=== PATIENT | male | born 1985 | race African-American/Black ===

== ENCOUNTER 2016-10-06 02:31 | Emergency (ER) | payer OTHER ==
--- NOTE | 2016-10-06 05:44 | ER Document Report ---
ED GI/ - General Chief Complaint: Vomiting Stated Complaint: VOMITING/ABDOMINAL PAIN Time seen by provider: 05:41 Mode of Arrival: Ambulatory Information source: Patient Notes: 31-year-old male presented to ED for nausea vomiting since 11:00 tonight. He states he has not had any vomiting since he came back to the room. He states he has a bad history of acid reflux. He states he still has some tenderness to his left upper quadrant but the rest of his abdomen feels much better. He refused to have any labs drawn or to give a urine. TRAVEL OUTSIDE OF THE [place] IN LAST 30 DAYS: No - HPI Patient complains to provider of: Abdominal pain, Vomiting Onset: This evening Timing/Duration: Better Quality of pain: Other - Sore to the upper left abdomen Severity at maximum: Severe Severity in ED: Almost gone Pain Level: 1 Location: [facility] Associated symptoms: Nausea, Vomiting Exacerbated by: Other - Vomiting Relieved by: Denies Similar symptoms previously: Yes Recently seen / treated by doctor: No - Related Data Allergies/Adverse Reactions: No Known Allergies Allergy (Unverified 01/02/12 17:04) Past Medical History - General Information source: Patient - Social History Smoking Status: Never Smoker Cigarette use (# per day): No Chew tobacco use (# tins/day): No Smoking Education Provided: No Frequency of alcohol use: Occasional Drug Abuse: None Occupation: outpatient physical therapist assistant Lives with: Family - Brother Family History: Malignancy. denies: Arthritis, CAD, COPD, CVA, DM, Hyperlipidemia, Hypertension, Thyroid Disfunction - Past Medical History Cardiac Medical History: Reports: None Pulmonary Medical History: Reports: None EENT Medical History: Reports: None Neurological Medical History: Reports: None Endocrine Medical History: Reports: None Renal/ Medical History: Reports: None Malignancy Medical History: Reports None GI Medical History: Reports: Hx Gastroesophageal Reflux Disease Musculoskeltal Medical History: Reports Hx Musculoskeletal Trauma - C4-C5 injury unsure if it was a fracture states he did not need surgery for Skin Medical History: Reports None Psychiatric Medical History: Reports: None Traumatic Medical History: Reports: None Infectious Medical History: Reports: None Past Surgical History: Reports: Hx Oral Surgery - [place] teeth - Immunizations Immunizations up to date: Yes Hx Diphtheria, Pertussis, Tetanus Vaccination: Yes Review of Systems - Review of Systems Constitutional: No symptoms reported EENT: No symptoms reported Cardiovascular: No symptoms reported Respiratory: No symptoms reported Gastrointestinal: Abdominal pain, Nausea, Vomiting Genitourinary: No symptoms reported Male Genitourinary: No symptoms reported Musculoskeletal: No symptoms reported Skin: No symptoms reported Hematologic/Lymphatic: No symptoms reported Neurological/Psychological: No symptoms reported -: Yes All other systems reviewed and negative Physical Exam - Vital signs Vitals: Temp Pulse Resp BP Pulse Ox 97.9 F 87 18 120/79 100 10/06/16 02:50 10/06/16 02:50 10/06/16 02:50 10/06/16 02:50 10/06/16 02:50 Interpretation: Normal - General General appearance: Appears well, Alert - HEENT Head: Normocephalic, Atraumatic Eyes: Normal Pupils: PERRL - Respiratory Respiratory status: No respiratory distress Chest status: Nontender Breath sounds: Normal Chest palpation: Normal - Cardiovascular Rhythm: Regular Heart sounds: Normal auscultation Murmur: No - Abdominal Inspection: Normal Distension: No distension Bowel sounds: Normal Tenderness: Tender - Mild left upper quadrant tenderness abdomen soft no guarding. No: McBurney's point, Escobar's sign, Guarding, Rebound Organomegaly: No organomegaly - Back Back: Normal, Nontender - Extremities General upper extremity: Normal inspection, Nontender, Normal color, Normal ROM , Normal temperature General lower extremity: Normal inspection, Nontender, Normal color, Normal ROM , Normal temperature, Normal weight bearing. No: Kip's sign - Neurological Neuro grossly intact: Yes Cognition: Normal Orientation: AAOx4 [place] Coma Scale Eye Opening: Spontaneous [place] Coma Scale Verbal: Oriented [place] Coma Scale Motor: Obeys Commands Rosalva Coma Scale Total: 15 Speech: Normal Motor strength normal: LUE, RUE, LLE, RLE Sensory: Normal - Psychological Associated symptoms: Normal affect, Normal mood - Skin Skin Temperature: Warm Skin Moisture: Dry Skin Color: Normal Course - Re-evaluation Re-evalutation: 10/06/16 06:10 Patient refused any labs or urine. A she states she's feeling much better and does not want to have labs drawn does not want to stay must go home. States he has a bad history of reflux and like something for his reflux. He states he has not vomited since he came back to the room. His abdomen is soft no guarding states he has mild tenderness to the left upper quadrant when palpated. Discussed need for return to the emergency room immediately for any nausea vomiting or increasing pain. Patient verbalized understanding. We'll discharge home with prescription for Pepcid and Zofran. Discussed patient with Dr. Holly he said just go ahead and discharge him. - Vital Signs Vital signs: Temp Pulse Resp BP Pulse Ox 97.9 F 87 18 120/79 100 10/06/16 02:50 10/06/16 02:50 10/06/16 02:50 10/06/16 02:50 10/06/16 02:50 Discharge - Discharge Clinical Impression: Abdominal pain Qualifiers: Abdominal location: left upper quadrant Qualified Code(s): R10.12 - Left upper quadrant pain Nausea and vomiting Qualifiers: Vomiting type: unspecified Vomiting Intractability: non-intractable Qualified Code(s): R11.2 - Nausea with vomiting, unspecified Condition: Stable Disposition: HOME, SELF-CARE Instructions: Family Physicians / Practices Additional Instructions: ABDOMINAL PAIN: There are many causes of abdominal pain. Pain can mean a serious problem requiring surgery (such as appendicitis). It can also be an innocent problem that goes away on its own (such as a viral infection). Often, time must pass to determine the cause of pain. The physician does not feel that hospitalization is necessary, at present. Things may change within the next 24 hours. Call the doctor or come back for re- examination if any problems occur, such as: (1) Pain that becomes more severe, steady, or becomes concentrated in one specific area. Also, pain that is more severe with movement or coughing. (2) Vomiting that persists or becomes more frequent. (3) Blood in the vomitus, urine, or bowel movements. Blood in the stool may have a tarry or black appearance. (4) Shaking chills or fever greater than 100 degrees F. (5) The abdomen becomes more distended or swollen. (6) Bowel movements cease. (7) Failure to improve as expected. Acid-Suppressing Medication You have a prescription for medicine which reduces the stomach's secretion of acid. Examples include Zantac, Tagament, and Pepcid. These drugs are often used to allow healing of ulcers or esophagitis. They may be needed to prevent recurrence of ulcers in some patients, or to prevent damage from acid reflux in the esophagus. Take all medication as prescribed, even after the pain is gone. Regular antacids may be added as needed if you have symptoms while taking this medicine. These medications sometimes are prescribed for allergic reactions because they have anti-histaminic effects and relieve the rash and itching of the reaction. There are usually no side effects from this medication. But, in rare cases and particularly in the elderly, serious problems can occur. Contact your doctor if there is fever, rash, hallucinations, confusion, or unusual bruising. Contact your doctor at once if you develop lightheadedness, black or bloody stool, or bloody vomitus. NORMAL EXAM AND WORKUP: At this time, your examination and workup show no significant abnormality. No significant abnormal physical findings are noted. You have refused all labs Although your examination showed no significant abnormal finding, there are no examinations and no studies that are 100% accurate. There is always the possibility that some abnormality could exist and not be detected with physical examination or within the limits and capabilities of laboratory and other studies. You should return or follow up as you were instructed on your visit today for further evaluation if your symptoms do not resolve. You have refused all labs and would like to go home at this time as you stated you feel much better. If you start to have more nausea vomiting or abdominal pain please return to ED immediately. FOLLOW-UP CARE: If you have been referred to a physician for follow-up care, call the physician s office for an appointment as you were instructed or within the next two days. If you experience worsening or a significant change in your symptoms, notify the physician immediately or return to the Emergency Department at any time for re-evaluation. Prescriptions: Famotidine [Pepcid 20 mg Tablet] 20 mg PO DAILY #12 tablet Ondansetron [Zofran Odt 4 mg Tablet] 1 tab PO Q6H #15 tab.eh
[2016-10-06] MEDS ORDERED: FAMOTIDINE 20 MG TABLET PO ONE (05:47)
[2016-10-06 07:48] VITALS: BP 110/95
== END 2016-10-06 07:40 | disposition home or self-care (01) ==
LOC: ER 02:31
DX: K21.9 Gastro-esophageal reflux disease without esophagitis (principal); R11.2 Nausea with vomiting, unspecified; R10.12 Left upper quadrant pain; R10.812 Left upper quadrant abdominal tenderness; Z87.19 Personal history of other diseases of the digestive system
CPT/HCPCS: 99283

== ENCOUNTER 2019-08-01 18:51 | Emergency (ER) | payer OTHER ==
[2019-08-01] MEDS ORDERED: ONDANSETRON HCL INJ/PF 4 MG/2 ML SDV IV ONE (19:25)
[2019-08-01] MEDS ORDERED: NORMAL SALINE 1000 ML 1,000 ML IV ONE (19:25)
[2019-08-01] MEDS ORDERED: MORPHINE SULFATE 10 MG/ML INJ IV ONE (19:25)
[2019-08-01] MEDS ORDERED: ONDANSETRON HCL INJ/PF 4 MG/2 ML SDV IM ONE (19:27)
--- NOTE | 2019-08-01 19:28 | ER Document Report ---
ED Medical Screen (RME) - General Chief Complaint: Breathing Difficulty Stated Complaint: DIFFICULTY BREATHING,ABDOMINAL PAIN Time Seen by Provider: 08/01/19 19:22 TRAVEL OUTSIDE OF THE [place] IN LAST 30 DAYS: No - HPI Notes: 08/01/19 19:28 34 year old male to the Ed with C/O stomach pain and difficulty breathing. States that he started to have abdominal pain this afternoon after "eating too much" and drinking some ETOH. States that he began to vomit. States his abdomen hurts so much that now he feels short of breath. denies diarrhea, fevers, chest pain, flank pain. I performed a brief medical screening exam on the patient and determined that the patient will need further management by mainside provider. I have placed initial orders to help expedite the patient's care today. - Related Data Allergies/Adverse Reactions: No Known Allergies Allergy (Verified 08/01/19 19:26) Past Medical History Renal/ Medical History: Denies: Hx Peritoneal Dialysis GI Medical History: Reports: Hx Gastroesophageal Reflux Disease Musculoskeltal Medical History: Reports Hx Musculoskeletal Trauma - C4-C5 injury unsure if it was a fracture states he did not need surgery for Past Surgical History: Reports: Hx Oral Surgery - [place] teeth - Immunizations Immunizations up to date: Yes Hx Diphtheria, Pertussis, Tetanus Vaccination: Yes Physical Exam - Vital signs Vitals: Temp Pulse Resp BP Pulse Ox 98 F 99 28 H 135/78 H 99 08/01/19 18:58 08/01/19 18:58 08/01/19 18:58 08/01/19 18:58 08/01/19 18:58 Course - Vital Signs Vital signs: Temp Pulse Resp BP Pulse Ox 98 F 99 28 H 135/78 H 99 08/01/19 18:58 08/01/19 18:58 08/01/19 18:58 08/01/19 18:58 08/01/19 18:58
[2019-08-01 20:07] LABS: ABSOLUTE BASOPHILS # (AUTO) 0.1 10^3/uL (0.0-0.2); ABSOLUTE LYMPHOCYTES (AUTO) 1.3 10^3/uL (0.5-4.7); ABSOLUTE MONOCYTES (AUTO) 0.4 10^3/uL (0.1-1.4); ABSOLUTE NEUT (AUTO) 10.2 10^3/uL (1.7-8.2); BASOPHILS % (AUTO) 0.7 % (0-2); EOSINOPHILS % (AUTO) 0.4 % (0-6); HEMATOCRIT 50.8 % (37.9-51.0); LYMPHOCYTES % (AUTO) 10.7 % (13-45); MEAN CORPUSCULAR HEMOGLOBIN 27.9 pg (27.0-33.4); MEAN CORPUSCULAR HGB CONC 33.4 g/dL (32.0-36.0); MEAN CORPUSCULAR VOLUME 84 fl (80-97); MONOCYTES % (AUTO) 3.5 % (3-13); PLATELET COUNT 241 10^3/uL (150-450); RED BLOOD COUNT 6.08 10^6/uL (4.35-5.55); RED CELL DISTRIBUTION WIDTH 13.1 % (11.5-14.0); SEGMENTED NEUTROPHILS % (AUTO) 84.7 % (42-78); TOTAL CELLS COUNTED % (AUTO) 100 %
[2019-08-01 20:22] LABS: ALBUMIN 4.9 g/dL (3.5-5.0); ALKALINE PHOSPHATASE 63 U/L (38-126); ANION GAP 15 (5-19); ASPARTATE AMINO TRANSFERASE 28 U/L (17-59); BILIRUBIN,DIRECT 0.1 mg/dL (0.0-0.4); BILIRUBIN,TOTAL 0.4 mg/dL (0.2-1.3); BLOOD UREA NITROGEN 12 mg/dL (7-20); CARBON DIOXIDE 23 mmol/L (22-30); CHLORIDE 103 mmol/L (98-107); GLUCOSE 101 mg/dL (75-110); POTASSIUM 3.9 mmol/L (3.6-5.0); TOTAL PROTEIN 8.3 g/dL (6.3-8.2)
--- NOTE | 2019-08-01 20:42 | RADIOLOGY REPORT (SQ) ---
EXAM DESCRIPTION: X-RAY CHEST- three VIEWS CLINICAL HISTORY: Shortness of breath and abdominal pain COMPARISON: None available TECHNIQUE: 3 views of the chest FINDINGS: There are no discrete air space infiltrates, pneumothoraces or pleural effusions. The pulmonary vascularity is normal. The cardiomediastinal silhouette is normal in size. No suspicious lytic or blastic osseous lesions are identified. IMPRESSION: There are no acute lung parenchymal findings.
--- NOTE | 2019-08-01 20:55 | EKG REPORT ---
SEVERITY:- NORMAL ECG - SINUS RHYTHM : Confirmed by: Marino Gonzales MD 01-Aug-2019 20:55:12
[2019-08-01 21:15] LABS: APPEARANCE,URINE CLOUDY; BILIRUBIN,URINE NEGATIVE (NEGATIVE); COLOR,URINE YELLOW; GLUCOSE, URINE NEGATIVE (NEGATIVE); KETONES,URINE TRACE mg/dL (NEGATIVE); LEUKOCYTE ESTERASE,URINE NEGATIVE (NEGATIVE); NITRITE,URINE NEGATIVE (NEGATIVE); PROTEIN,URINE 30 mg/dL (NEGATIVE); URINE SPECIFIC GRAVITY 1.017; UROBILINOGEN,URINE NEGATIVE mg/dL (<2.0)
[2019-08-01] MEDS ORDERED: MAG HYDROX/AL HYDROX/SIMETH SUSP 30 ML UDCUP PO ONE (23:51)
[2019-08-01] MEDS ORDERED: LIDOCAINE 2% VISCOUS SOLN 20 ML UDCUP PO ONE (23:51)
--- NOTE | 2019-08-01 23:56 | ER Document Report ---
ED General - General Chief Complaint: Abdominal Pain Stated Complaint: DIFFICULTY BREATHING,ABDOMINAL PAIN Time Seen by Provider: 08/01/19 19:22 TRAVEL OUTSIDE OF THE [place] IN LAST 30 DAYS: No - Related Data Allergies/Adverse Reactions: No Known Allergies Allergy (Verified 08/01/19 19:26) Past Medical History - Social History Smoking Status: Never Smoker Frequency of alcohol use: Occasional Drug Abuse: None Family History: Malignancy. denies: Arthritis, CAD, COPD, CVA, DM, Hyperlipidemia, Hypertension, Thyroid Disfunction Patient has suicidal ideation: No Patient has homicidal ideation: No Renal/ Medical History: Denies: Hx Peritoneal Dialysis GI Medical History: Reports: Hx Gastroesophageal Reflux Disease Musculoskeletal Medical History: Reports Hx Musculoskeletal Trauma - C4-C5 injury unsure if it was a fracture states he did not need surgery for Past Surgical History: Reports: Hx Oral Surgery - [place] teeth - Immunizations Immunizations up to date: Yes Hx Diphtheria, Pertussis, Tetanus Vaccination: Yes Physical Exam - Vital signs Vitals: Temp Pulse Resp BP Pulse Ox 98 F 99 28 H 135/78 H 99 08/01/19 18:58 08/01/19 18:58 08/01/19 18:58 08/01/19 18:58 08/01/19 18:58 - Notes Notes: Patient presents emergency department complaining of epigastric pain is been going on for several hours. Patient is a little bit better right now. Nonradiating. He does report similar pain in the past related to his reflux. He is also complaining of burning sensation in the substernal area seems to be worse when he lies flat and better when he sits up. Several episodes of nausea vomiting earlier today but is not thrown up in several hours. For that he was drinking large amount of alcohol today and normally does not drink much. He is really not had any chest pain at all. He said the burning sensation in the substernal area but no chest pain to suggest a cardiac etiology since he has no real shortness of breath he is. He says his mouth is dry and when he lays flat he gets a burning sensation and feels like he has to gasp to take a breath. Denies any fevers or cough. Has not had any blood in his stools and no history of peptic ulcer disease or pancreatitis Past medical history is unremarkable no diabetes hypertension heart disease or elevated cholesterol Social history does not smoke. Says he drinks rarely but today there was celebrating Family history is noncontributory Review of systems pertinent positives and negatives in HPI otherwise all the systems were reviewed and acutely negative PHYSICIAN EXAM -vital signs are noted triage note and note from triage reviewed GENERAL: Well-appearing, well-nourished and in _no acute distress HEAD: Atraumatic, normocephalic. EYES: Pupils equal round and reactive to light, extraocular movements intact, sclera anicteric, conjunctiva are normal. ENT: nares patent, oropharynx clear without exudates. Dry mucous membranes. NECK: supple without lymphadenopathy LUNGS: Breath sounds clear to auscultation bilaterally and equal. No wheezes rales or rhonchi. HEART: Regular rate and rhythm without murmurs ABDOMEN: Soft, nontender, normoactive bowel sounds. EXTREMITIES: No deformity, no edema. NEUROLOGICAL: No focal neurological deficits. Moves all extremities spontaneously and on command. PSYCH: Normal mood, normal affect. SKIN: Warm, Dry, normal turgor, no rashes or lesions noted. BACK-nontender in the midline Differential diagnosis was dehydration abnormal electrolytes pancreatitis reflux Course - Vital Signs Vital signs: Temp Pulse Resp BP Pulse Ox 98.3 F 82 18 128/76 H 99 08/01/19 23:25 08/01/19 23:25 08/01/19 23:25 08/01/19 23:25 08/01/19 23:25 - Laboratory Result Diagrams: 08/01/19 19:50 08/01/19 19:50 Laboratory results interpreted by me: 08/01/19 08/01/19 08/01/19 19:50 19:50 20:38 WBC 12.0 H RBC 6.08 H Lymph % (Auto) 10.7 L Absolute Neuts (auto) 10.2 H Seg Neutrophils % 84.7 H Total Protein 8.3 H Urine Protein 30 H Urine Ketones TRACE H Discharge - Discharge Clinical Impression: Abdominal pain Qualifiers: Abdominal location: epigastric Qualified Code(s): R10.13 - Epigastric pain Nausea and vomiting Qualifiers: Vomiting Intractability: unspecified Esophageal reflux Qualifiers: Esophagitis presence: esophagitis presence not specified Qualified Code(s): K21.9 - Gastro-esophageal reflux disease without esophagitis Disposition: HOME, SELF-CARE Instructions: Abdominal Pain ([facility]), Antinausea Medication ([facility]), Low-Fat Diet ([facility]) Additional Instructions: Please review the discharge instructions, they will tell you about your dis ease/injury and what you need to return to the ED for Return to the ED if you feel worse or can follow-up with your family doctor Stop drinking alcohol Stay on a bland diet avoiding fatty greasy foods for the next 3 to 5 days Follow-up with your family doctor in 3 to 5 days if not better Taking either Nexium or Prilosec-both are [id number]-daily for 10 days then as needed for reflux symptoms Forms: Return to Work
[2019-08-02] MEDS ORDERED: ONDANSETRON ODT 4 MG TAB (6 TAB/ER DISP) PO PRN (00:28)
[2019-08-02] MEDS ORDERED: PANTOPRAZOLE SODIUM 20 MG TABLET.DR PO ONE (00:28)
[2019-08-02 00:57] VITALS: BP 132/72
== END 2019-08-02 00:57 | disposition home or self-care (01) ==
LOC: ER 18:51
DX: K21.9 Gastro-esophageal reflux disease without esophagitis (principal); R10.13 Epigastric pain; R11.2 Nausea with vomiting, unspecified; R06.02 Shortness of breath
CPT/HCPCS: 93005; 36415; 83690; 85025; 80053; 81001; 84484; 71046; 93010; J3490 ×2; J2405; 96374; 99284

== ENCOUNTER 2019-12-22 20:40 | Emergency (ER) | payer OTHER ==
[2019-12-22] MEDS ORDERED: NORMAL SALINE 1000 ML 1,000 ML IV ONE ×2 (21:02→21:59)
[2019-12-22] MEDS ORDERED: ONDANSETRON HCL INJ/PF 4 MG/2 ML SDV IV ONE ×2 (21:03→21:58)
[2019-12-22 21:29] LABS: ABSOLUTE BASOPHILS # (AUTO) 0.1 10^3/uL (0.0-0.2); ABSOLUTE EOSINOPHILS # (AUTO) 0.2 10^3/uL (0.0-0.6); ABSOLUTE LYMPHOCYTES (AUTO) 2.6 10^3/uL (0.5-4.7); ABSOLUTE MONOCYTES (AUTO) 0.5 10^3/uL (0.1-1.4); ABSOLUTE NEUT (AUTO) 2.5 10^3/uL (1.7-8.2); BASOPHILS % (AUTO) 1.4 % (0-2); EOSINOPHILS % (AUTO) 3.8 % (0-6); HEMATOCRIT 47.9 % (37.9-51.0); HEMOGLOBIN 16.6 g/dL (13.5-17.0); LYMPHOCYTES % (AUTO) 43.5 % (13-45); MEAN CORPUSCULAR HEMOGLOBIN 28.6 pg (27.0-33.4); MEAN CORPUSCULAR HGB CONC 34.6 g/dL (32.0-36.0); MEAN CORPUSCULAR VOLUME 83 fl (80-97); MONOCYTES % (AUTO) 8.4 % (3-13); PLATELET COUNT 253 10^3/uL (150-450); RED BLOOD COUNT 5.79 10^6/uL (4.35-5.55); SEGMENTED NEUTROPHILS % (AUTO) 42.9 % (42-78); TOTAL CELLS COUNTED % (AUTO) 100 %; WHITE BLOOD COUNT 5.9 10^3/uL (4.0-10.5)
[2019-12-22 21:53] LABS: ALBUMIN 4.7 g/dL (3.5-5.0); ALCOHOL 96 mg/dL (NONE DETECTED); ALKALINE PHOSPHATASE 61 U/L (38-126); ANION GAP 15 (5-19); ASPARTATE AMINO TRANSFERASE 31 U/L (17-59); BILIRUBIN,TOTAL 0.3 mg/dL (0.2-1.3); BLOOD UREA NITROGEN 13 mg/dL (7-20); CALCIUM 9.8 mg/dL (8.4-10.2); CARBON DIOXIDE 21 mmol/L (22-30); CHLORIDE 103 mmol/L (98-107); GLUCOSE 107 mg/dL (75-110); TOTAL PROTEIN 7.7 g/dL (6.3-8.2)
--- NOTE | 2019-12-22 21:58 | ER Document Report ---
ED General - General Chief Complaint: ETOH Abuse Stated Complaint: VOMITING Time Seen by Provider: 12/22/19 21:49 Mode of Arrival: Ambulatory Information source: Patient Notes: triage notes patient ambulatory to pit 1, patient states he drove himself to the er for vomiting after taking 3 shots of brown liquor. patient states hes a light drinking. patient states "i need an iv or something. whenever im like this i always have to come to the hospital" patient states he only drinks once every 6 months. patient rambling in triage. patient breaths e/u, nad my notes 34-year-old black male arrives with acute vomiting after drinking 3 shots of whiskey rum; patient reports this occurs every 6 months when he is celebrating and he always begins to have epigastric pain with vomiting. Patient reports he has some relief from nausea after receiving the 4 mg of Zofran medicine by nursing staff. Patient is placed in the hallway next to bed 3. He is lying comfortable there while I do a exam on him. He has a drape around him. Patient reports he has vomited twice tonight and denies any history of PUD or pancreatitis. He denies any sore throat fever chills nuchal rigidity cephalgia back pain neck pain extremity lesions IV drug abuse; he does admit to the abdominal pain. Patient reports he vomited his dario chips that he was eating for dinner TRAVEL OUTSIDE OF THE [place] IN LAST 30 DAYS: No - HPI Onset: Just prior to arrival Onset/Duration: Sudden, Persistent, Worse Quality of pain: Achy Severity: Mild Pain Level: 1 Associated symptoms: Nausea, Vomiting, Weakness Exacerbated by: Movement, Food - Related Data Allergies/Adverse Reactions: No Known Allergies Allergy (Verified 08/01/19 19:26) Past Medical History - Social History Smoking Status: Never Smoker Chew tobacco use (# tins/day): No Frequency of alcohol use: Occasional Drug Abuse: None Family History: Malignancy. denies: Arthritis, CAD, COPD, CVA, DM, Hyperlipidemia, Hypertension, Thyroid Disfunction Patient has homicidal ideation: No Renal/ Medical History: Denies: Hx Peritoneal Dialysis GI Medical History: Reports: Hx Gastroesophageal Reflux Disease Musculoskeletal Medical History: Reports Hx Musculoskeletal Trauma - C4-C5 injury unsure if it was a fracture states he did not need surgery for Past Surgical History: Reports: Hx Oral Surgery - [place] teeth - Immunizations Immunizations up to date: Yes Hx Diphtheria, Pertussis, Tetanus Vaccination: Yes Review of Systems - Review of Systems Constitutional: See HPI, Weakness EENT: No symptoms reported Cardiovascular: No symptoms reported Respiratory: No symptoms reported Gastrointestinal: See HPI, Abdominal pain, Nausea, Vomiting Genitourinary: No symptoms reported Male Genitourinary: No symptoms reported Musculoskeletal: No symptoms reported Skin: No symptoms reported Hematologic/Lymphatic: No symptoms reported Neurological/Psychological: No symptoms reported Physical Exam - Vital signs Vitals: Temp Pulse Resp BP Pulse Ox 97.6 F 79 20 123/70 98 12/22/19 20:48 12/22/19 20:48 12/22/19 20:48 12/22/19 20:48 12/22/19 20:48 Interpretation: Normal - General General appearance: Alert - HEENT Head: Normocephalic, Atraumatic Eyes: Normal Pupils: PERRL Pharynx: Normal Neck: Normal - Respiratory Respiratory status: No respiratory distress Chest status: Nontender Breath sounds: Normal Chest palpation: Normal - Cardiovascular Rhythm: Regular Heart sounds: Normal auscultation Murmur: No - Abdominal Inspection: Normal Distension: No distension Bowel sounds: Hyperactive Tenderness: Tender - epigastric ..patient points to this area - Genitourinary Tenderness: Other - deferred - Back Back: Normal - Extremities General upper extremity: Normal inspection General lower extremity: Normal inspection - Neurological Neuro grossly intact: Yes Cognition: Normal Orientation: AAOx4 [place] Coma Scale Eye Opening: Spontaneous [place] Coma Scale Verbal: Oriented [place] Coma Scale Motor: Obeys Commands [place] Coma Scale Total: 15 Speech: Normal Motor strength normal: LUE, RUE, LLE, RLE Sensory: Normal - Psychological Associated symptoms: Normal mood - Skin Skin Temperature: Warm Skin Moisture: Dry Course - Vital Signs Vital signs: Temp Pulse Resp BP Pulse Ox 98.1 F 67 20 118/64 100 12/23/19 00:56 12/23/19 00:56 12/23/19 00:56 12/23/19 00:56 12/23/19 00:56 - Laboratory Result Diagrams: 12/22/19 21:14 12/22/19 21:14 Laboratory results interpreted by me: 12/22/19 12/22/19 21:14 21:14 RBC 5.79 H Carbon Dioxide 21 L Critical Care Note - Critical Care Note Total time excluding time spent on procedures (mins): 90 Comments: 96 ethanol level; patient slept for at least 2 hours and hallway 3 gurney and was much improved after 2 L of IV fluids. Discharge - Discharge Clinical Impression: Alcohol use disorder Gastritis, acute Qualifiers: Gastritis type: alcoholic Gastritis bleeding: without bleeding Qualified Code(s): K29.20 - Alcoholic gastritis without bleeding Condition: Good Disposition: HOME, SELF-CARE Additional Instructions: Avoid drinking any alcohol return to ER as needed take medicines as directed encourage fluids like Pedialyte or Gatorade or tea diluted Prescriptions: Famotidine/Ca Carb/Mag Hydrox [Pepcid Complete Tablet Chew] 1 each PO DAILY #30 tab.chew Forms: Return to Work
[2019-12-22] MEDS ORDERED: FAMOTIDINE INJ/PF 20 MG/2 ML SDV IV ONE (23:08)
[2019-12-22] MEDS ORDERED: ONDANSETRON ODT 4 MG TAB (6 TAB/ER DISP) PO PRN (23:08)
[2019-12-23 00:57] VITALS: BP 118/64
== END 2019-12-23 01:00 | disposition home or self-care (01) ==
LOC: ER 20:40
DX: K29.20 Alcoholic gastritis without bleeding (principal); F10.10 Alcohol abuse, uncomplicated; Y90.4 Blood alcohol level of 80-99 mg/100 ml; R11.2 Nausea with vomiting, unspecified; R10.13 Epigastric pain; R10.816 Epigastric abdominal tenderness; R53.1 Weakness
CPT/HCPCS: 96376; 99285; 96361; 96374; 96375; 36415; 80307; 83690; 85025; 80053; J2405; J7030; S0028